=== PATIENT | male | born 1975 | race Caucasian/White ===

== ENCOUNTER → 2020-05-02 08:50 | Outpatient (BNVA) | payer BC, SELFPAY | PROVIDERS: Referring Provider Dermatology; Visit Provider Dermatology | DX: L82.1 Other seborrheic keratosis (principal); B07.8 Other viral warts; L57.0 Actinic keratosis; Z80.8 Family history of malignant neoplasm of other organs or systems | CPT/HCPCS: 17000; 17003; 99203 ==

== ENCOUNTER 2020-12-23 10:59 | Outpatient (CLI) | payer OTHER, SELFPAY ==
--- NOTE | 2020-12-23 11:07 | USCV_ITS ---
John Fleming Age: 45 Gender: M : 1975 Exam Date: 12/23/2020 11:31 Ordering Phys: Yosvany Hopson MD Technologist: Jduy Noble Exam Location: [facility] [place] Indication: PALPATATIONS BP: / HR: 82 Rhythm: Sinus Technical Quality: Technically difficult study MEASUREMENTS (Male / Female) Normal Values 2D ECHO LV Diastolic Diameter PLAX 4.0 cm 4.2 - 5.9 / 3.9 - 5.3 cm LV Systolic Diameter PLAX 3.3 cm IVS Diastolic Thickness 1.2 cm 0.6 - 1.0 / 0.6 - 0.9 cm IVS Systolic Thickness 1.3 cm LVPW Diastolic Thickness 1.3 cm 0.6 - 1.0 / 0.6 - 0.9 cm LVPW Systolic Thickness 1.4 cm LVOT Diameter 2.0 cm LV Ejection Fraction 2D Teich 35.3 % LV Ejection Fraction MOD 2C 32.7 % LV Ejection Fraction 2C AL 39.9 % LA Diameter 4.2 cm LA Width 2.8 cm LA Height 3.8 cm RA Width 3.3 cm RA Height 4.5 cm Aorta at Sinotubular Diameter 3.4 cm M-MODE LV Diastolic Diameter MM 4.7 cm 4.2 - 5.9 / 3.9 - 5.3 cm LV Systolic Diameter MM 2.9 cm LV Ejection Fraction MM Teich 63.4 % IVS Diastolic Thickness MM 1.5 cm 0.6 - 1.0 / 0.6 - 0.9 cm IVS Systolic Thickness MM 1.8 cm LVPW Diastolic Thickness MM 1.7 cm 0.6 - 1.0 / 0.6 - 0.9 cm LVPW Systolic Thickness MM 1.9 cm RV Diastolic Diameter MM 2.0 cm Aortic Annulus Diameter 3.3 cm LA Ao Ratio MM 1.3 MV E Point Septal Separation 0.2 cm DOPPLER AV Peak Velocity 114.0 cm/s LVOT Peak Velocity 74.0 cm/s AV Area Cont Eq vti 2.3 cm squared AV Area Cont Eq pk 2.1 cm squared MV Area PHT 4.9 cm squared Mitral E to A Ratio 1.0 MV E' Velocity 66.0 cm/s Mitral E to LV E' Septal Ratio 7.4 TR Peak Velocity 175.1 cm/s TR Peak Gradient 12.3 mmHg TR Mean Velocity 141.0 cm/s TR Mean Gradient 8.5 mmHg TR Velocity Time Integral 48.2 cm TV Peak E Velocity 43.0 cm/s Right Atrial Pressure 3.0 mmHg Pulmonary Artery Systolic Pressu 15.3 mmHg PV Peak Velocity 56.0 cm/s RV Acceleration Time 0.1 s RV Ejection Time 0.3 s RV AcT/ET 0.4 FINDINGS Left Ventricle Normal left ventricular cavity size and systolic function. Mildly increased left ventricular wall thickness. Left ventricular ejection fraction is estimated at 55%. This study is inadequate for estimation of regional wall motion abnormality. Normal diastolic function. Right Ventricle Normal right ventricular size and systolic function. Right ventricular systolic pressure 15.3 mmHg. Right Atrium Right atrium not well visualized. Left Atrium Left atrium not well visualized. Mitral Valve Thickened mitral valve. Aortic Valve Aortic valve not well visualized. No aortic valve stenosis. Tricuspid Valve Tricuspid valve not well visualized. Pulmonic Valve Pulmonic valve not well visualized. Pericardium No pericardial effusion. Aorta Normal-sized aortic root. CONCLUSIONS 1. This is a technically difficult study with poor apical views. 2. Normal left ventricular cavity size and systolic function. Mildly increased left ventricular wall thickness. Left ventricular ejection fraction is estimated at 55%. This study is inadequate for estimation of regional wall motion abnormality. Normal diastolic function. 3. The valves are grossly normal however not well visualized. 4. Repeat study with ultrasound enhancing agent is recommended. Samantha Radford MD (Electronically Signed) Final Date: 26 December 2020 17:37 S
== END 2020-12-23 11:00 | disposition home or self-care (01) ==
PROVIDERS: PCP Family Medicine; Visit Provider Family Medicine
DX: I49.3 Ventricular premature depolarization (principal)
CPT/HCPCS: 93306

== ENCOUNTER 2022-05-01 06:00 | Outpatient (CLI) | payer OTHER, SELFPAY ==
[2022-05-01 10:52] LABS: D Dimer 0.28 ug/mIFEU (0-0.59)
== END 2022-05-01 06:01 | disposition home or self-care (01) ==
LOC: LAB 08-06 07:06
PROVIDERS: PCP Family Medicine; Visit Provider Family Medicine
DX: Z01.89 Encounter for other specified special examinations (principal)
CPT/HCPCS: 85378

== ENCOUNTER 2023-11-16 08:13 | Outpatient (CLI) | payer OTHER, SELFPAY ==
--- NOTE | 2023-11-16 08:20 | CT_ITS ---
WS: [id number] CT NECK TECHNIQUE: Contrast-enhanced CT of the neck with coronal and sagittal reformatted images. CLINICAL INFORMATION: DYSPHAGIA COMPARISON: None. DLP: 302.[address] scans at [facility] use at least one of these dose optimization techniques: automated e xposure control; mA and/or kV adjustment per patient size (includes targeted exams where dose is matc hed to clinical indication); or iterative reconstruction. FINDINGS: Mastoid air cells and paranasal sinuses are well aerated. Normal posterior nasopharynx. Nor mal parapharyngeal fat. Parotid glands and submandibular glands are normal. No evidence of supraglott ic or glottic mass. Normal subglottic airway. Small RIGHT thyroid nodule measuring 8 x 9 mm posterior ly. No cervical lymphadenopathy. LEFT paracentral disc osteophyte protrusion C5-6 with mild central canal stenosis and slight indentat ion of the LEFT ventral cervical cord. Severe LEFT foraminal narrowing. This could further evaluated with MRI. Small central protrusion C3-C4 with slight contact of the cervical cord with mild central c anal stenosis. IMPRESSION: 1. Normal salivary glands. 2. No cervical lymphadenopathy. 3. No evidence of supraglottic or glottic mass. 4. Small 8 x 9 mm RIGHT posterior thyroid nodule. 5. LEFT paracentral disc osteophyte protrusion C5-6 with mild central canal stenosis and slight inde ntation LEFT ventral cervical cord. Severe LEFT foraminal narrowing. This could further evaluated wi MRI.
[2023-11-16] MEDS: iohexol 350 mg/mL 500 mL Btl (per mL) IV (08:39)
== END 2023-11-16 08:14 | disposition home or self-care (01) ==
LOC: RAD 08:14
PROVIDERS: PCP Family Medicine; Visit Provider Specialist
DX: R13.10 Dysphagia, unspecified (principal); E04.1 Nontoxic single thyroid nodule; M25.78 Osteophyte, vertebrae; M48.02 Spinal stenosis, cervical region; M50.222 Other cervical disc displacement at C5-C6 level
CPT/HCPCS: 70491; Q9967

== ENCOUNTER 2023-12-01 08:15 | Outpatient (CLI) | payer OTHER, SELFPAY ==
--- NOTE | 2023-12-01 08:18 | FL_ITS ---
WS: [id number] EXAM: Air-contrast esophagram. INDICATION: Food feels like it is getting stuck in the lower neck. This is intermittent and not prese nt today. The patient has been examined by ENT. Exam date 12/01/2023. COMPARISON: None. FINDINGS: The esophagus is distensible. No stricture is identified. No esophageal or Zenker's diverticulum is n oted. Contrast passed freely through the esophagus to the stomach without delay. A Schatzki's ring is identified indicating a small hiatal hernia. IMPRESSION: There is no stricture or diverticulum identified. Contrast passes freely through the esophagus. There is a small hiatal hernia noted..
== END 2023-12-01 08:16 | disposition home or self-care (01) ==
LOC: RAD 08:15
PROVIDERS: PCP Family Medicine; Visit Provider Specialist
DX: R13.10 Dysphagia, unspecified (principal); K44.9 Diaphragmatic hernia without obstruction or gangrene
CPT/HCPCS: 74220